=== PATIENT | male | born 1950 | race Hispanic/Latino ===

== ENCOUNTER 2017-06-27 07:57 | Day surgery (SDC) | payer MEDICARE, OTHER ==
[2017-06-19 07:06] VITALS: BMI 27.3
[2017-06-27] MEDS ORDERED: Propofol 10 mg/ml Inj (20 ML) ONE (09:25)
[2017-06-27] MEDS ORDERED: Sodium Chloride 0.9% 1,000 ML IV SCH (09:45)
[2017-06-27] MEDS ORDERED: ePHEDrine 50 mg/ml Inj ONE (09:57)
[2017-06-27 10:45] VITALS: TEMP 97.6
[2017-06-27 11:13] VITALS: RESP 16
[2017-06-27 11:27] VITALS: BP 131/70; PULSE 66; O2SAT 99
== END 2017-06-27 11:57 | disposition home or self-care (01) ==
LOC: ENDO 07:57
PROVIDERS: ATTEND Internal Medicine Gastroenterology
DX: D12.5 Benign neoplasm of sigmoid colon (principal); K31.7 Polyp of stomach and duodenum; K29.50 Unspecified chronic gastritis without bleeding; B96.81 Helicobacter pylori [H. pylori] as the cause of diseases classified elsewhere; K57.30 Diverticulosis of large intestine without perforation or abscess without bleeding; K64.8 Other hemorrhoids; D50.9 Iron deficiency anemia, unspecified; I25.10 Atherosclerotic heart disease of native coronary artery without angina pectoris; E11.22 Type 2 diabetes mellitus with diabetic chronic kidney disease; N18.9 Chronic kidney disease, unspecified; Z79.84 Long term (current) use of oral hypoglycemic drugs; Z79.82 Long term (current) use of aspirin
CPT/HCPCS: 43239; 45385; 88305; 88312; 88342; J2001; J2704; J7040 ×2